=== PATIENT | male | born 1950 | race Hispanic/Latino ===

== ENCOUNTER 2018-07-08 10:22 | Inpatient (IN) ==
--- NOTE | 2018-07-08 11:12 | Diag Imaging Result Doc PS360 ---
EXAM: CT HEAD W/O CONTRAST HISTORY: stroke symptoms TECHNIQUE: CT head without contrast. COMPARISON: None. FINDINGS: No parenchymal hemorrhage. No epidural or subdural hematoma. No subarachnoid hemorrhage. No mass identified on this noncontrasted exam. No hydrocephalus. No sinus opacification. IMPRESSION: No hemorrhage. Negative brain CT without contrast. This exam was performed using automated exposure control, adjustment of mA or kV according to patient size, and/or use of iterative reconstruction technique. Electronically signed by Yosef Harris 07/08/2018 11:10 AM
[2018-07-08 11:19] LABS: BASO# 0.02 X1000 (0.0-0.2); BASO% 0.4 % (0.0-0.8); EOS# 0.11 X1000 (0.0-0.7); HEMATOCRIT 40.6 % (42.0-52.0); HEMOGLOBIN 14.1 g/dL (14.0-18.0); IMM GRAN# 0.01 X1000 (0.0-0.04); IMM GRAN% 0.2 % (0.0-0.5); LYMPH# 1.93 X1000 (1.2-3.4); LYMPH% 35.2 % (20.5-51.1); MCH 28.8 PG (27-31); MCHC 34.7 g/dL (33-37); MCV 82.9 FL (81-99); MONO# 0.38 X1000 (0.11-0.59); MONO% 6.9 % (1.7-9.3); MPV 9.4 FL (7.4-10.4); NEUT# 3.04 X1000 (1.4-6.5); NEUT% 55.3 % (42.2-75.2); PLT 158 X1000 (130-400); RDW 13.6 % (11.5-14.5); WBC 5.49 X1000 (4.8-10.8)
--- NOTE | 2018-07-08 11:20 | Diag Imaging Result Doc PS360 ---
EXAM: CHEST-1 VIEW HISTORY: numbness TECHNIQUE: Chest single view COMPARISON: 04/03/2018 FINDINGS: The lungs are well expanded. The heart is not enlarged. The vessels are not distended. There are no infiltrates. No effusion identified. IMPRESSION: Negative exam. Electronically signed by Yosef Harris 07/08/2018 11:18 AM
[2018-07-08 11:29] LABS: INR 0.89; PROTIME 12.5 Seconds (11.0-16.0)
[2018-07-08 11:30] LABS: PTT 31.4 Seconds (22.3-41.8)
[2018-07-08 11:36] LABS: AGAP 13; ALBUMIN 4.3 g/dL (3.5-5.0); ALKALINE PHOSPHATASE 79 U/L (32-122); BUN 16 mg/dL (8-22); CALCIUM 8.9 mg/dL (8.8-10.2); CHLORIDE 101 mmol/L (98-107); COSMO 280; CREATININE 0.8 mg/dL (0.7-1.2); ESTIMATED GFR > 60; GLUCOSE 128 mg/dL (70-104); GOT 32 U/L (10-34); GPT 41 U/L (10-44); POTASSIUM 3.7 mmol/L (3.5-5.1); SODIUM 139 mmol/L (136-145); TCO2 25 mmol/L (25-35); TOTAL PROTEIN 6.7 g/dL (6.3-8.3)
--- NOTE | 2018-07-08 11:43 | PROVIDER DOCUMENTATION ---
This chart was entered by Celina Juan Scribe, acting as scribe for Becky Colvin MD. HPI-Neurological Disorder - General Chief Complaint: Stroke-Like Symptoms Stated Complaint: CHEST PAINS Time Seen by Provider: 07/08/18 10:45 Source: family Allergies/Adverse Reactions: Patient Allergies Allergy/AdvReac Type Severity Reaction Status Date / Time No Known Allergies Allergy Verified 04/03/18 13:51 Home Medications: Home Medication List Medication Instructions Recorded Confirmed Last Taken Type Hydrochlorothiazide 25 mg PO DAILY #30 tab 04/03/18 Unknown Rx Olmesartan [Benicar] 20 mg PO DAILY #30 tab 04/03/18 Unknown Rx - History of Present Illness-Neuro Nature of Presenting Problem: Patient is a 67 year old male who presents to the ED with stroke like symptoms. Patient's daughter states patient started having numbness to left face, left arm and left leg at 0730 this morning. Patient's daughter also states patient had difficulty speaking and dizziness. Pt told daughter in law who is interpreting that he was leaning to his left walking back to the house as he was outside when the symptoms started. Patient's daughter states symptoms have mildly improved. Patient does not report headache. Severity: reports: mild Onset/Duration: reports: this morning (0730) Timing: reports: improving Context: reports: impaired speech (aphasia), other (numbness to left face, left arm and left leg.) Character of Deficits: reports: altered sensation (numbness), impaired speech (aphasia) New weakness or altered sensation location:: reports: LUE, LLE, left facial Cognitive Baseline: alert, oriented x3 Gait Baseline: walks without assistance Associated Symptoms: reports: dizziness Similar Symptoms Previously?: No Recently seen or treated by another doctor?: No Review of Systems - Adult - REVIEW OF SYSTEMS - ADULT ROS:: ROS per family (daughter. due to language barrier) Constitutional: reports: no symptoms reported Eyes: reports: no symptoms reported Ears, Nose, Mouth & Throat: reports: no symptoms reported Cardiovascular: reports: no symptoms reported Respiratory: reports: no symptoms reported Gastrointestinal: reports: no symptoms reported Genitourinary: reports: no symptoms reported Musculoskeletal: reports: no symptoms reported Integumentary: reports: no symptoms reported Neurological: reports: dizziness/vertigo (dizziness), numbness (left face, left arm and left leg.), other (aphasia). denies: headache/migraines, seizure, syncope Psychiatric: reports: no symptoms reported Endocrine: reports: no symptoms reported Hematologic/Lymphatic: reports: no symptoms reported Allergic/Immunologic: reports: no symptoms reported All Other Systems: Reviewed and Negative Past History - Adult - PAST MEDICAL HISTORY-ADULT Review of Records: reports: Nursing Assessment Review, Medications Reviewed, Social history reviewed & non-contributory. Major Childhood Illnesses: reports: denies history Cardiovascular: reports: HTN Respiratory: reports: denies history Gastrointestinal: reports: denies history Obstetrical/Gynecological: reports: denies history Genitourinary: reports: other (prostate issues) Musculoskeletal: reports: denies history Neurological: reports: denies history Psychiatric: reports: denies history Endocrine/Immune: reports: denies history Other Conditions: reports: denies history - PRIOR SURGERIES/PROCEDURES Surgical/Procedure History: reports: hernia repair, orthopedic (extremity) (wrist) - IMMUNIZATION STATUS Childhood Immunizations: See Nurse Assessment Flu Vaccine: See Nurse Assessment - FAMILY HISTORY Family History: reviewed, not pertinent - SOCIAL HISTORY Smoking: denies Substance Use: denies Living Situation: family Physical Exam- Neurological - Physical Exam-Neuro Initial Vital Signs Reviewed: Yes General Appearance: appears well, alert, no apparent distress Eye Exam: bilateral eye: PERRL, EOMI Head Injury: no evidence of injury Neck: full range of motion, supple Respiratory: lungs clear, normal breath sounds, no pleuratic chest pain, no respiratory distress Cardiovascular: normal peripheral pulses, regular rate, rhythm Abdominal Exam: non tender, soft Lymphatic: no adenopathy Peripheral Pulses: radial (R): 2+, radial (L): 2+ Extremity: normal range of motion Coordination/Gait: normal finger to nose Motor/Sensory: no motor deficit, no pronator drift, sensory deficit (mild parathesia left face LUE LLE) Neurologic: programmer developer II-XII nml as tested, grossly normal. negative: aphasia, facial droop, focal weakness, motor weakness Psych/Mental Status: normal mood/affect, normal thought content, normal thought process, oriented x 3 (15) - Glascow Coma Scale Best Eye Response: (4) open spontaneously Best Verbal Response: (5) oriented Best Motor Response: (6) obeys commands Progress - PLAN OF CARE/RESULTS Progress/Plan/Lab Results: Vital Signs - 8 hr 03/07/19 10:39 Pulse Rate 69 Respiratory Rate 10 L Blood Pressure 175/89 O2 Sat by Pulse Oximetry 97 Laboratory Results - last 24 hr 07/08/18 07/08/18 07/08/18 10:50 10:50 10:50 WBC 5.49 RBC 4.90 Hgb 14.1 Hct 40.6 L MCV 82.9 MCH 28.8 MCHC 34.7 RDW Std Deviation 13.6 Plt Count 158 MPV 9.4 Immature Gran % (Auto) 0.2 Neut % (Auto) 55.3 Lymph % (Auto) 35.2 Dickson % (Auto) 6.9 Eos % (Auto) 2.0 Baso % (Auto) 0.4 Immature Gran # (Auto) 0.01 Neut # (Auto) 3.04 Lymph # (Auto) 1.93 Dickson # (Auto) 0.38 Eos # (Auto) 0.11 Baso # (Auto) 0.02 PT INR PTT (Actin FS) Sodium 139 Potassium 3.7 Chloride 101 Carbon Dioxide 25 Anion Gap 13 BUN 16 Creatinine 0.8 Estimated GFR/1.73 m2 > 60 BUN/Creatinine Ratio 20 Glucose 128 H Calculated Osmolality 280 Calcium 8.9 Total Bilirubin 1.10 H AST 32 ALT 41 Alkaline Phosphatase 79 Troponin T < 0.010 Total Protein 6.7 Albumin 4.3 Globulin 2.0 Albumin/Globulin Ratio 2.0 07/08/18 10:50 WBC RBC Hgb Hct MCV MCH MCHC RDW Std Deviation Plt Count MPV Immature Gran % (Auto) Neut % (Auto) Lymph % (Auto) Dickson % (Auto) Eos % (Auto) Baso % (Auto) Immature Gran # (Auto) Neut # (Auto) Lymph # (Auto) Dickson # (Auto) Eos # (Auto) Baso # (Auto) PT 12.5 INR 0.89 PTT (Actin FS) 31.4 Sodium Potassium Chloride Carbon Dioxide Anion Gap BUN Creatinine Estimated GFR/1.73 m2 BUN/Creatinine Ratio Glucose Calculated Osmolality Calcium Total Bilirubin AST ALT Alkaline Phosphatase Troponin T Total Protein Albumin Globulin Albumin/Globulin Ratio Orders Category Date Time Status Admit - [facility] Routine AdmDCTranf 07/08/18 12:12 Active Call Admitting on Arrival AT ADMISSION Care 07/08/18 12:13 Active Cardiac Monitoring DIRECTED Care 07/08/18 10:57 Active Finger Stick Blood Sugar (ED) DIRECTED Care 07/08/18 10:57 Active Misc. NRSG Communication Order DIRECTED Care 07/08/18 10:57 Active Resuscitation Status Routine Care 07/08/18 12:12 Ordered Saline Loc NOW Care 07/08/18 10:57 Active CHEST-1 VIEW [RAD] Stat Exams 07/08/18 10:[address] HEAD W/O CONTRAST [CT] Stat Exams 07/08/18 10:46 Completed CBC WITH ELECTRONIC DIFF [HEME] Stat Lab 07/08/18 10:50 Completed COMPREHENSIVE METABOLIC PANEL [CHEM] Stat Lab 07/08/18 10:50 Completed PROTIME WITH INR [COAG] Stat Lab 07/08/18 10:50 Completed PTT [COAG] Stat Lab 07/08/18 10:50 Completed TROPONIN T Stat Lab 07/08/18 10:50 Completed Aspirin Med 07/08/18 12:10 Discontinued 324 mg PO NOW ONE EKG [EKG] Stat Ther 07/08/18 10:57 Draft Transfer/Admit Order [TRANSFER] Routine Transfer 07/08/18 12:14 Ordered neuro tele first call 11:[address] head 11:55 Dr Kline based on HPI current status neg head CT and NIHSS, agree w pt staying at [facility] and get work up 12:03 d/w Mariah HPI exam [facility] CT neg, spoke w neuro [place], agreed to admit, will give ASA now Result Diagrams: 07/08/18 10:50 07/08/18 10:50 - EKG 1 Time of EKG reading by physician:: 11:32 EKG Read and Signed by:: Becky Colvin EKG Interpretation (*Must complete 3 of following elements*): Abnormal Rate: 56 Rhythm: sinus bradycardia IL Interval: normal Comments: nonspecific T wave abnormality. - XRAY 1 XRAY Study: Chest Impression: See EMR Report (EXAM: CHEST-1 VIEW HISTORY: numbness TECHNIQUE: Chest single view COMPARISON: 04/03/2018 FINDINGS: The lungs are well expanded. The heart is not enlarged. The vessels are not distended. There are no infiltrates. No effusion identified. IMPRESSION: Negative exam. Electronically signed by Yosef Harris 07/08/2018 11:18 AM 07/08/18 1118 Interpreting Physician: Yosef Harris MD Dictated Date/Time: 07/08/18 1118 cc: Becky Colvin MD; None,PCP) - CT/MRI 1 CT Study: Head Impression: See EMR Report ( EXAM: CT HEAD W/O CONTRAST HISTORY: stroke symptoms TECHNIQUE: CT head without contrast. COMPARISON: None. FINDINGS: No parenchymal hemorrhage. No epidural or subdural hematoma. No subarachnoid hemorrhage. No mass identified on this noncontrasted exam. No hydrocephalus. No sinus opacification. IMPRESSION: No hemorrhage. Negative brain CT without contrast. This exam was performed using automated exposure control, adjustment of mA or kV according to patient size, and/or use of iterative reconstruction technique. Electronically signed by Yosef Harris 07/08/2018 11:10 AM 07/08/18 1110 Interpreting Physician: Yosef Harris MD Dictated Date/Time: 07/08/18 1108 cc: Becky Colvin MD; None,PCP) - CONSULTS/PCP/HOSPITALIST Notification #1 *Consult/PCP/Hospitalist*: [facility] Time Discussed: 11:32 Reason/Comments: Dr. Colvin consulted with [facility]. Consult Disposition: other (will page information resources director Neuro.) #2 Consult: Dr. Moss Time Discussed: 11:57 Reason/Comments: Dr. Colvin consulted with Dr. Moss about patient. #3 Consult: Dr. Lemus Time Discussed: 12:03 Reason/Comments: Dr. Colvin consulted with Dr. Lemus about patient. Departure - Departure Date of Disposition Decision: 07/08/18 Time of Disposition Decision: 12:03 DIAGNOSIS: TIA (transient ischemic attack) Disposition: ADMITTED INPATIENT 09 Certified Medical Emergency: Emergent Condition: Good Additional Freetext Instructions: Mariah admit Referrals and Follow-Ups: None,PCP [Primary Care Provider] - - Critical Care Note This patient required my direct & personal management of CC.: No Attestation - Physician/ KALEB Attestation The physician spent face to face time with patient:: Yes Advanced Practice Provider documentation review:: Supervising physician onsite and consulted in the evaluation and care of this patient. The physician did have a face to face encounter with the patient. - NIH Stroke Scale Level of Consciousness: 0-Alert LOC Questions (ask month and age): 0-Answers Both Correctly Best Gaze (horizontal eye movement): 0-Normal Visual (use finger movement, counting or visual threat): 0-No Visual Loss Facial Palsy (show teeth or raise eyebrows & close eyes tght: 0-Symmetrical Movement Motor Function-left arm: 0-Normal Motor Function-right arm: 0-Normal Motor Function-left le-Normal Motor Function-right le-Normal Limb Ataxia(cohiwa-cbkz-fnkiyw, or heel to irene): 0-No Ataxia Sensory(pin prick to face,arms,trunk,legs-compare side/side): 1-Mild to Moderate Decrease in Sensation (left) Best Language(name item/read sentence.Ex-Down to Earth): 0-No Aphasia Dysarthria(Pt read words or say words Ex.Mama,Tip-Top,Thanks: 0-Normal Articulation Extinction and Inattention: 0-Normal This chart was documented by the indicated scribe, (Celina Juan, Sigifredo) and accurately reflects the services I performed and decisions made by Antonina ozuna Amanda M., MD, as attested by the provider's signature.
--- NOTE | 2018-07-08 11:44 | EKG Report ---
Test Performed on : 07/08/2018 11:32:20 AM Test Reason : numbness Blood Pressure : / mmHG Vent. Rate : 056 BPM Atrial Rate : 056 BPM P-R Int : 142 ms QRS Dur : 094 ms QT Int : 424 ms P-R-T Axes : 032 010 096 degrees QTc Int : 409 ms Sinus bradycardia. Nonspecific T wave abnormality Abnormal ECG When compared with ECG of 03-APR-2018 14:30, No significant change was found Unconfirmed Result
[2018-07-08] MEDS ORDERED: ASPIRIN PO ONE (12:10)
[2018-07-08] MEDS ORDERED: MOTRIN PO ONE (13:22)
[2018-07-08] MEDS ORDERED: TYLENOL PO PRN (14:32)
[2018-07-08] MEDS ORDERED: ZOFRAN IV PRN (14:32)
[2018-07-08] MEDS: APRESOLINE IV PRN ×2 (15:17→15:25)
[2018-07-08] MEDS: NS 1,000 ML IV SCH (15:17)
--- NOTE | 2018-07-08 15:25 | HISTORY AND PHYSICAL ---
CHIEF COMPLAINT: Numbness in left face, arm and leg. HISTORY OF PRESENT ILLNESS: This is a 67-year-old gentleman with a history of hypertension and prostate problems. He presented to the emergency room with his and daughter in law who state that about 7:30 this morning he was walking outside coming back to his house. He had a sudden onset of weakness. He stated that he was leaning to his left holding onto objects walking into the house. Patient's stated that she did notice some lower lip drooping although this has resolved. The patient states that he has had a headache that started yesterday that is right behind his right eye. He states that the headache got worse after coming to the emergency room this morning. He denied any change in vision, hearing, or any difficulty swallowing. PAST MEDICAL HISTORY: Hypertension and prostate problems. PAST SURGICAL HISTORY: He denies. SOCIAL HISTORY: He denies alcohol, tobacco, or illicit drug use. He lives with his . He has a son and pohdnkzi-jg-mao that are very close and active in his care. ALLERGIES: No known drug allergies. HOME MEDICATIONS: None. REVIEW OF SYSTEMS: Discussed with the patient with pertinent positives stated in the HPI. He denied any syncope, dizziness, any chest pain, palpitations, any shortness of breath, cough, fever, chills, any nausea, vomiting, diarrhea, constipation, black or bloody vomitus or stools, any hematuria, dysuria, frequency, or urgency. PHYSICAL EXAMINATION: GENERAL: This is a 67-year-old gentleman who is sitting up in the stretcher in the emergency room in no distress. VITAL SIGNS: Blood pressure is 170/90 with a heart rate of 56, respirations are 16, temperature is 97.8 degrees oral with room air sats 97 to 99%. EYES: Pupils are equal, round and react to light. EOMs are intact. Sclerae are anicteric. HEENT: Head is normocephalic, atraumatic. Mucous membranes are moist. NECK: Supple with trachea midline. CARDIOVASCULAR: Regular rate and rhythm. S1 and S2 appreciated. He has no murmurs. No lower extremity edema with peripheral pulses palpable x4 extremities. Calves are nontender to palpation gastrointestinal. GASTROINTESTINAL: Abdomen is soft, nontender, and nondistended. Bowel sounds in all 4 quadrants. PULMONARY: Lungs are clear. Chest rises and falls symmetrically with respiration. Chest wall is nontender to palpation. NEUROLOGIC: He is alert and oriented x3. Forehead is spared. He has equal nasal flaring. He has no tongue or uvula deviation. Equal shoulder shrug. He has no plantar drift. Mlsajh-vd-rjfl is 3/3 bilateral. Muscle strength is 5/5 x4 extremities. LABORATORY: 1. WBC is 5.4 with hemoglobin 14.1, hematocrit 40.6 and platelets 158,000. INR 0.89. Sodium 139, potassium 3.7, BUN 16, creatinine 0.8 with a glucose of 128, total bilirubin is 1.10. 2. CT of the head without contrast revealed no hemorrhage. Negative brain CT without contrast. 3. Chest x-ray revealed negative exam. Lungs are well expanded. Heart is not enlarged. Vessels are not distended. There are no infiltrates. No effusion identified. EKG reveals sinus shikha at a rate of 56 with nonspecific T-wave abnormalities. ASSESSMENT AND PLAN: 1. Transient ischemic attack. We will continue neuro checks every 4 hours. We will continue with daily aspirin. We will obtain bilateral carotid Doppler. We will obtain a lipid panel. 2. Hypertension. The patient is on no medications. We will allow for permissive hypertension treating pressure above 180 systolic or 90 diastolic with hydralazine p.r.n. We can transition over to oral medications. Further treatments pending hospital course. Dictated by KYREE Mcginnis for Ga Lemus MD This chart was documented by, KYREE Mcginnis and accurately reflects the services performed, treatment plan and medical decisions as attested by the providers signature Ga Lemus MD. cc: KYREE Mcginnis MD
[2018-07-08] MEDS ORDERED: FLU VACCINE IM ONE (16:30)
--- NOTE | 2018-07-08 16:32 | Extremity Venous Study ---
EXAM: Carotid Ultrasound HISTORY: TIA, LEFT SIDED WEAKNESS/NUMBNESS TECHNIQUE: Grayscale, duplex, and color Doppler evaluation was performed of the carotid arteries bilaterally. COMPARISON: None. FINDINGS: There is no significant atherosclerotic plaque. There are no velocity elevations to suggest hemodynamically significant internal carotid artery stenosis. ICA/CCA ratios are within normal limits. Bilateral vertebral arterial flow is antegrade. IMPRESSION: No evidence for hemodynamically significant carotid artery stenosis. Estimated stenosis is less than 50% bilaterally. Electronically signed by Aissatou Amin 07/08/2018 4:30 PM
[2018-07-09] MEDS: NS 1,000 ML IV SCH (03:02)
--- NOTE | 2018-07-09 05:57 | HISTORY AND PHYSICAL ---
ADDENDUM: Patient seen and examined by myself. Full note dictated and discussed with the nurse practitioner. Patient presented to the ER with acute neurologic changes that appear to have improved. Still having some numbness on his face. We will monitor his blood pressures, and will follow. cc: Ga Lemus MD
[2018-07-09 06:59] LABS: BASO# 0.01 X1000 (0.0-0.2); BASO% 0.2 % (0.0-0.8); EOS# 0.12 X1000 (0.0-0.7); EOS% 2.1 % (0.0-10.0); HEMATOCRIT 39.1 % (42.0-52.0); HEMOGLOBIN 13.5 g/dL (14.0-18.0); IMM GRAN# 0.01 X1000 (0.0-0.04); IMM GRAN% 0.2 % (0.0-0.5); LYMPH# 1.62 X1000 (1.2-3.4); LYMPH% 27.7 % (20.5-51.1); MCHC 34.5 g/dL (33-37); MCV 84.1 FL (81-99); MONO# 0.39 X1000 (0.11-0.59); MONO% 6.7 % (1.7-9.3); MPV 9.9 FL (7.4-10.4); NEUT% 63.1 % (42.2-75.2); PLT 172 X1000 (130-400); RBC 4.65 XMIL (4.7-6.1); WBC 5.85 X1000 (4.8-10.8)
[2018-07-09] MEDS ORDERED: PRILOSEC PO SCH (07:00)
[2018-07-09 07:12] LABS: ESTIMATED GFR > 60
[2018-07-09 07:19] LABS: AGAP 9; ALBUMIN 3.8 g/dL (3.5-5.0); ALKALINE PHOSPHATASE 64 U/L (32-122); BUN 15 mg/dL (8-22); CALCIUM 8.5 mg/dL (8.8-10.2); CHLORIDE 110 mmol/L (98-107); CHOLESTEROL 244 mg/dL (0-200); COSMO 290; CREATININE 0.9 mg/dL (0.7-1.2); GLUCOSE 106 mg/dL (70-104); GOT 23 U/L (10-34); GPT 35 U/L (10-44); HDL 42 mg/dL (35-55); POTASSIUM 4.1 mmol/L (3.5-5.1); SODIUM 145 mmol/L (136-145); TCO2 26 mmol/L (25-35); TOTAL PROTEIN 6.1 g/dL (6.3-8.3); TRIGLYCERIDES 433 mg/dL (39-160)
[2018-07-09] MEDS ORDERED: PRINIVIL PO SCH (09:00)
--- NOTE | 2018-07-09 13:47 | ECHO REPORT ---
ORDER DATE: 07/08/2018 MEASUREMENTS: Left atrium 3.1, aortic root 2.9. SUMMARY: 1. Technically difficult study due to limited parasternal acoustic window quality. 2. The aortic valve is not well visualized. There are some fibrocalcific changes in the region of aortic valve and on apical view, cannot entirely exclude a subaortic calcified membrane. Peak gradient across aortic valve by Doppler is 25 mmHg with a mean gradient of 16 mmHg. Values suggests functional mild aortic stenosis. Mitral and tricuspid valves are without evidence of structural abnormality. There is trace tricuspid regurgitation. The aortic root is normal in size. Pulmonic valve is not well demonstrated. 3. Normal left ventricular chamber size with borderline concentric left hypertrophy suggested. Estimated left ventricular ejection fraction appears to be at least 60%. No regional wall motion abnormalities evident. Left atrium, right atrium, right ventricle are normal in size with grossly preserved right ventricular systolic function. 4. No pericardial effusion. 5. Appearance of the inferior vena cava suggests normal central venous pressure. CONCLUSIONS: 1. Technically difficult study. 2. Aortic valve not well imaged with fibrocalcific changes seen in the vicinity of the aortic valve. Cannot exclude calcified subaortic membrane. Doppler velocities suggest functional mild aortic stenosis. There is mild aortic regurgitation. 3. Borderline concentric left ventricular hypertrophy with estimated left ejection fraction at least 60%. 4. If clinically indicated, consideration to be given to repeat echocardiography with emphasis on left ventricular outflow tract, aortic valve anatomy, versus transesophageal echocardiography. cc: MD Carolyn Henriquez CRNP
[2018-07-09 15:40] VITALS: BP 138/65
--- NOTE | 2018-07-10 19:21 | DISCHARGE SUMMARY ---
ADMISSION DATE: 07/08/2018 DISCHARGE DATE: 07/09/2018 DIAGNOSES: 1. Transient ischemic attack. 2. Hypertension. DIAGNOSTIC DATA: 1. CT of the head revealed no hemorrhage. Negative brain CT without contrast. 2. Chest x-ray revealed negative exam, lungs are well expanded. Heart is not enlarged. Vessels are not distended. There are no infiltrates. No effusion identified. 3. Carotid Doppler study revealed no evidence for hemodynamically significant carotid artery stenosis. Estimated stenosis is less than 50% bilaterally. 4. Echocardiogram revealed borderline concentric left ventricular hypertrophy with estimated left ventricular ejection fraction of at least 60%. Doppler studies suggest mild aortic stenosis. There is mild aortic regurgitation. 5. EKG revealed sinus bradycardia with nonspecific T-wave abnormality at a rate of 56. HOSPITAL COURSE: Mr. Fowler presented to the emergency room after having a sudden onset of left- sided weakness and numbness to his left upper lip and gums. He was able to walk into his home, although he had to hold onto furniture. On arrival to the emergency room, symptoms had resolved with the exception of numbness to the inside of his left upper lip and along his gums line, which resolved prior to discharge. DISCHARGE PHYSICAL EXAMINATION: Vital signs: Blood pressure is 138/65 with a heart rate of 67, respirations 20, temperature is 98.2 degrees with room air saturation 97% to 100%. Eyes: Pupils are equal, round and react to light. EOMs are intact. Sclerae are anicteric. Cardiovascular: Regular rate and rhythm. S1 and S2 appreciated. He has no lower extremity edema. Calves are nontender to palpation. Gastrointestinal: Abdomen is soft, nontender, nondistended, with bowel sounds in all 4 quadrants. Pulmonary: Lungs are clear. Chest rises and falls symmetrically with respiration. Chest wall is nontender to palpation. Neurologic: He is alert and oriented x3. Forehead is spared. He has equal nasal flaring. No tongue or uvula deviation. He has equal shoulder shrug. No plantar drift. Gizoae-kq-ccsi 3 out of 3. Muscle strength is 5/5 x4 extremities. DISCHARGE MEDICATIONS: Atorvastatin 40 mg p.o. daily; Plavix 75 mg p.o. daily; lisinopril 10 mg p.o. daily; baby aspirin 81 mg p.o. daily. DISPOSITION: 1. He is to follow up his primary care physician in the next 1-2 weeks, sooner if needed. 2. He has been instructed to call to be seen sooner or return to the ER for any syncope, dizziness, chest pain, palpitations, any nausea, vomiting, diarrhea, constipation, any black or bloody vomitus or stools for any recurrence of symptoms, numbness or paresthesias, or for any questions or concerns that he may have. 3. He is being discharged home in stable condition with family members. This was a greater than 30-minute discharge. Dictated by KYREE Mcginnis for Ga Lemus MD This chart was documented by, KYREE Mcginnis and accurately reflects the services performed, treatment plan and medical decisions as attested by the providers signature Ga Lemus MD. cc: KYREE Mcginnis MD [facility]
--- NOTE | 2018-07-10 23:28 | DISCHARGE SUMMARY ---
ADMISSION DATE: 07/08/2018 DISCHARGE DATE: 07/09/2018 ADDENDUM: Patient seen and examined by myself. Full note dictated and discussed with nurse practitioner. On discharge, patient is much improved. Still having some very minimal tingling in his mouth, but notes that this has improved. He denies any focalized numbness. Denies weakness. Denies change in mentation. We will discharge patient home on aspirin 81 every day, Plavix for a month and Lipitor. Discussed with him the importance of controlling his blood pressure. A conversation was had with the family through translation. cc: Ga Lemus MD
== END 2018-07-09 15:52 | disposition home or self-care (01) | DRG 69 ==
LOC: P.ED 10:22 → P.MEDSURG 13:40
PROVIDERS: ATTEND Family Medicine
CPT/HCPCS: 36415; 70450; 71010; 71045; 80053; 80061; 84484; 85025; 85610; 85730; 93005; 93306; 93880; 99285; A9270; J0360; J7030